=== PATIENT | male | born 1945 | race Caucasian/White ===

== ENCOUNTER 2019-06-23 10:24 | Emergency (ER) | payer MEDICARE, OTHER ==
--- NOTE | 2019-06-23 10:47 | ED Physician Documentation ---
History of Present Illness - Stated complaint Stated Complaint: ABD PX/CHEST DISCOMFORT - Chief complaint Chief Complaint: General - History obtained from History obtained from: Patient - History of Present Illness Timing: Today Pain level max: 3 Pain level now: 0 - Additonal information Additional information: states epigastric pain x 2 hours this am. Started at 7am. States feels similar to past pancreatitis. No nausea or vomiting. Now resolved. No fever or chills. No change in bowel movements. No etoh. Pain radiated to his chest in the bilateral upper extremities. He took Aleve without relief. No history of cardiac issues in the past. States he had a normal cardiac stress test in 2010. Review of Systems Ten Systems: 10 systems reviewed and negative Constitutional: denies: Fever, Chills Ears: denies: Ear pain Nose: denies: Rhinorrhea / runny nose, Congestion Respiratory: denies: Dyspnea, Cough GI: denies: Nausea, Vomiting, Diarrhea Skin: denies: Rash Musculoskeletal: denies: Neck pain, Back pain Neurologic: denies: Headache PD PAST MEDICAL HISTORY - Past Medical History Past Medical History: Yes GI: Pancreatitis, Cholelithiasis - Past Surgical History Past Surgical History: Yes General: Cholecystectomy - Present Medications Home Medications: Ambulatory Orders Medication Instructions Recorded Confirmed Tamsulosin [Flomax] 0.4 mg PO DAILY 06/23/19 06/23/19 - Allergies Allergies/Adverse Reactions: Allergies Allergy/AdvReac Type Severity Reaction Status Date / Time No Known Drug Allergies Allergy Verified 06/23/19 10:36 - Social History Does the pt smoke?: No Smoking Status: Never smoker PD ED PE NORMAL - Vitals Vital signs reviewed: Yes - General General: Alert and oriented X 3, No acute distress - HEENT HEENT: Moist mucous membranes - Neck Neck: Supple, no meningeal sign - Cardiac Cardiac: RRR, Strong equal pulses - Respiratory Respiratory: No respiratory distress, Clear bilaterally - Abdomen Abdomen: Soft, Non tender, Non distended - Derm Derm: Warm and dry - Neuro Neuro: Alert and oriented X 3 - Psych Psych: Normal mood, Normal affect Results - Vitals Vitals: Vital Signs - 24 hr 06/23/19 06/23/19 06/23/19 10:30 11:02 12:21 Temperature 36.4 C L Heart Rate 68 63 75 Respiratory 14 21 17 Rate Blood Pressure 178/84 H 164/80 H 167/82 H O2 Saturation 100 100 100 06/23/19 06/23/19 14:16 16:00 Temperature Heart Rate 57 L 62 Respiratory 18 12 Rate Blood Pressure 164/75 H 151/69 H O2 Saturation 98 99 Oxygen O2 Source Room air - EKG (time done) 1029 Rate: Rate (enter#) (63) Rhythm: NSR [place]: Normal Intervals: Normal LA QRS: Normal Ischemia: Normal ST segments - Labs Labs: Laboratory Tests 06/23/19 06/23/19 06/23/19 11:07 11:07 11:07 WBC 4.7 L RBC 4.76 Hgb 15.3 Hct 46.9 MCV 98.5 H MCH 32.1 H MCHC 32.6 RDW 13.0 Plt Count 199 MPV 10.8 Neut # (Auto) 3.6 Lymph # (Auto) 0.7 L [place] # (Auto) 0.3 Eos # (Auto) 0.1 Baso # (Auto) 0.0 Absolute Nucleated RBC 0.00 Nucleated RBC % 0.0 Sodium 143 Potassium 4.1 Chloride 103 Carbon Dioxide 28 Anion Gap 12.0 BUN 26 H Creatinine 0.9 Estimated GFR (MDRD) 83 L Glucose 153 H Calcium 9.2 Total Bilirubin 0.9 AST 30 ALT 30 Alkaline Phosphatase 85 Troponin I High Sens 583.0 H* Total Protein 6.5 L Albumin 4.1 Globulin 2.4 Albumin/Globulin Ratio 1.7 Lipase 22 06/23/19 12:56 WBC RBC Hgb Hct MCV MCH MCHC RDW Plt Count MPV Neut # (Auto) Lymph # (Auto) [place] # (Auto) Eos # (Auto) Baso # (Auto) Absolute Nucleated RBC Nucleated RBC % Sodium Potassium Chloride Carbon Dioxide Anion Gap BUN Creatinine Estimated GFR (MDRD) Glucose Calcium Total Bilirubin AST ALT Alkaline Phosphatase Troponin I High Sens 4401.8 H* Total Protein Albumin Globulin Albumin/Globulin Ratio Lipase - Rads (name of study) cxr Radiology: Prelim report reviewed, EMP read contemporaneously, See rad report (no acute disease) PD MEDICAL DECISION MAKING - ED course Complexity details: reviewed results, re-evaluated patient, considered differential, d/w patient, d/w family ED course: 73-year-old male with symptoms that are typical for acute coronary syndrome. Normal EKG. Initial high-sensitivity troponin is significantly elevated. Aspirin given and heparin drip started. States that his last care was at [facility] and that is where most of his medical contacted [facility], spoke with Dr. Swanson at 1300, cardiology who recommends admission of the hospitalist there. Discussed with Dr. Epstein, hospitalist at 1310 who graciously accepts in transfer. COBRA forms filled out. No recurrent chest pain here. This document was made in part using voice recognition software. While efforts are made to proofread this document, sound alike and grammatical errors may occur. High-sensitivity troponin was repeated with significant rise Departure - Departure Disposition: 02 Transfer Acute Care Hosp Clinical Impression: NSTEMI (non-ST elevated myocardial infarction) Condition: Stable
[2019-06-23 11:09] LABS: BASOPHILS % (AUTO) 0.9 %; WHITE BLOOD COUNT 4.7 x10^3/uL (4.8-10.8)
[2019-06-23 11:15] LABS: EOSINOPHILS # (AUTO) 0.1 10^3/uL (0.0-0.7); EOSINOPHILS % (AUTO) 1.3 %; HGB - HEMOGLOBIN 15.3 g/dL (14.0-18.0); LYMPHOCYTES # (AUTO) 0.7 10^3/uL (1.5-3.5); LYMPHOCYTES % (AUTO) 14.3 %; MEAN CORPUSCULAR HEMOGLOBIN 32.1 pg (27.0-31.0); MEAN CORPUSCULAR HGB CONC 32.6 g/dL (32.0-36.0); MEAN CORPUSCULAR VOLUME 98.5 fL (80.0-94.0); MEAN PLATELET VOLUME 10.8 fL (7.4-11.4); MONOCYTES # (AUTO) 0.3 10^3/uL (0.0-1.0); MONOCYTES % (AUTO) 7.2 %; NEUTROPHILS # (AUTO) 3.6 10^3/uL (1.5-6.6); NEUTROPHILS % (AUTO) 75.9 %; PLT - PLATELET COUNT 199 10^3/uL (130-450); RED BLOOD COUNT 4.76 10^6/uL (4.70-6.10)
[2019-06-23 11:26] LABS: ALBUMIN 4.1 g/dL (3.2-5.5); ALBUMIN/GLOBULIN RATIO 1.7 (1.0-2.2); BILIRUBIN,TOTAL 0.9 mg/dL (0.2-1.0); CALCIUM 9.2 mg/dL (8.5-10.3); CREATININE 0.9 mg/dL (0.6-1.2); TOTAL PROTEIN 6.5 g/dL (6.7-8.2)
--- NOTE | 2019-06-23 11:35 | XRAY Report ---
Reason: Chest Pain Procedure Date: 06/23/2019 Accession Number: [id number] / [id number] Procedure: XR - Chest 1 View X-Ray CPT Code: 04994 FULL RESULT: EXAM: CHEST RADIOGRAPHY EXAM DATE: 06/23/2019 11:11 AM. CLINICAL HISTORY: Chest Pain. COMPARISON: None. TECHNIQUE: 1 view. FINDINGS: Lungs/Pleura: No focal opacities evident. No pleural effusion. No pneumothorax. Mediastinum: Heart and mediastinal contours are notable for aortic calcification. Other: None. IMPRESSION: No acute cardiopulmonary abnormality demonstrated. RADIA
[2019-06-23] MEDS ORDERED: HEPARIN 5,000 UNIT/ML VIAL IVP STA (11:54)
[2019-06-23] MEDS ORDERED: HEPARIN 25000UNITS/500ML (D5W) 25,000 UNIT/500 ML BAG IV STA (11:54)
[2019-06-23] MEDS ORDERED: ASPIRIN CHEW 81 MG TABLET PO STA (11:55)
[2019-06-23 16:02] VITALS: BP 151/69
== END 2019-06-23 16:30 | disposition short-term general hospital (02) ==
LOC: ED 10:24
DX: I21.4 Non-ST elevation (NSTEMI) myocardial infarction (principal)
CPT/HCPCS: 36415; 71045; 80053; 83690; 85025; 93005; 96374; 99285; A9270

== ENCOUNTER 2019-07-02 | Outpatient (CLI) | payer MEDICARE, OTHER | END 2019-07-02 09:52 | disposition critical access hospital (66) | DX: K62.5 Hemorrhage of anus and rectum (principal); Z79.02 Long term (current) use of antithrombotics/antiplatelets | CPT/HCPCS: A0425; A0429 ==

== ENCOUNTER 2019-07-02 10:10 | Emergency (ER) | payer MEDICARE, OTHER ==
[2019-07-02 10:40] LABS: BASOPHILS # (AUTO) 0.1 10^3/uL (0.0-0.1); BASOPHILS % (AUTO) 0.8 %; EOSINOPHILS # (AUTO) 0.2 10^3/uL (0.0-0.7); EOSINOPHILS % (AUTO) 3.4 %; HGB - HEMOGLOBIN 14.4 g/dL (14.0-18.0); LYMPHOCYTES # (AUTO) 1.1 10^3/uL (1.5-3.5); MEAN CORPUSCULAR HEMOGLOBIN 31.6 pg (27.0-31.0); MEAN CORPUSCULAR HGB CONC 31.6 g/dL (32.0-36.0); MEAN CORPUSCULAR VOLUME 99.8 fL (80.0-94.0); MONOCYTES # (AUTO) 0.5 10^3/uL (0.0-1.0); MONOCYTES % (AUTO) 8.8 %; NEUTROPHILS # (AUTO) 4.2 10^3/uL (1.5-6.6); NEUTROPHILS % (AUTO) 68.5 %; PLT - PLATELET COUNT 197 10^3/uL (130-450); RED BLOOD COUNT 4.56 10^6/uL (4.70-6.10); RED CELL DISTRIBUTION WIDTH 13.4 % (12.0-15.0); WHITE BLOOD COUNT 6.1 x10^3/uL (4.8-10.8)
[2019-07-02 10:46] LABS: INR 1.2 (0.8-1.2); PT - PROTHROMBIN TIME 13.1 secs (9.9-12.6)
[2019-07-02 10:53] LABS: PARTIAL THROMBOPLASTIN TIME 30.3 secs (24.9-33.3)
[2019-07-02 11:01] LABS: ALBUMIN 3.8 g/dL (3.2-5.5); ALBUMIN/GLOBULIN RATIO 1.5 (1.0-2.2); CALCIUM 9.5 mg/dL (8.5-10.3); TOTAL PROTEIN 6.3 g/dL (6.7-8.2)
--- NOTE | 2019-07-02 11:19 | ED Physician Documentation ---
PD HPI GI BLEED - Stated complaint Stated Complaint: RECTAL BLEED - Chief complaint Chief Complaint: Abd Pain - History obtained from History obtained from: Patient, Family (spouse) - History of Present Illness Timing - onset: Today Associated symptoms: Maroon stool Similar symptoms before: Has not had sx before Recently seen: Admitted (Hospitalized 9 days ago for acute PA; underwent coronary stent; discharged on Plavix and baby ASA.) - Additional information Additional information: The patient is a 73-year-old male who presents via ambulance after an episode of dark red blood per rectum this morning. At the time he had mild dull lower abdominal discomfort, which has since resolved. He also reports slight nausea that has also resolved. He denies vomiting. He denies fever, lightheadedness, or dysuria. He denies history of similar symptoms in the past. His past medical history is significant for necrotizing pancreatitis. He underwent open cholecystectomy in 2011 after failed attempt at laparoscopic procedure. He is 9 days status post acute PA for which he was hospitalized at [facility], where he underwent coronary stent placement. Current medications include Plavix 75 mg daily, and baby aspirin 1 daily. Review of Systems Constitutional: denies: Fever, Fatigue Ears: denies: Tinnitus/ringing Nose: denies: Congestion Throat: denies: Sore throat Cardiac: denies: Chest pain / pressure, Palpitations Respiratory: denies: Dyspnea, Cough GI: reports: Bloody / black stool. denies: Abdominal Pain, Vomiting : denies: Dysuria Skin: denies: Rash Musculoskeletal: denies: Back pain Neurologic: denies: Focal weakness, Numbness, Syncope, Headache PD PAST MEDICAL HISTORY - Past Medical History Past Medical History: Yes Cardiovascular: [place] GI: Pancreatitis, Cholelithiasis - Past Surgical History Past Surgical History: Yes General: Cholecystectomy - Present Medications Home Medications: Ambulatory Orders Medication Instructions Recorded Confirmed Tamsulosin [Flomax] 0.4 mg PO DAILY 06/23/19 07/02/19 Aspirin 81 mg PO DAILY 07/02/19 07/02/19 Atorvastatin [Lipitor] 40 mg QPM 07/02/19 07/02/19 Clopidogrel [Plavix] 1 tab DAILY 07/02/19 07/02/19 Lisinopril 5 mg PO DAILY 07/02/19 07/02/19 Metoprolol Tartrate 25 mg PO BID 07/02/19 07/02/19 - Allergies Allergies/Adverse Reactions: Allergies Allergy/AdvReac Type Severity Reaction Status Date / Time No Known Drug Allergies Allergy Verified 07/02/19 10:15 - Social History Does the pt smoke?: No Smoking Status: Never smoker Does the pt have substance abuse?: No PD ED PE NORMAL - Vitals Vital signs reviewed: Yes (normal) - General General: Alert and oriented X 3, Well developed/nourished - HEENT HEENT: Atraumatic, Pharynx benign - Neck Neck: No adenopathy, No JVD - Cardiac Cardiac: RRR - Respiratory Respiratory: No respiratory distress, Clear bilaterally - Abdomen Abdomen: Normal bowel sounds, Soft, Non tender, No organomegaly - Rectal Rectal: Other (Dark blood in the rectal vault.) - Back Back: No CVA TTP - Derm Derm: No rash - Extremities Extremities: No edema, No calf tenderness / cord - Neuro Neuro: Alert and oriented X 3, No motor deficit, Normal speech Results - Vitals Vitals: Vital Signs - 24 hr 07/02/19 07/02/19 07/02/19 10:14 11:56 13:14 Temperature 36.4 C L Heart Rate 68 54 L Heart Rate [ 58 L Sitting] Heart Rate [ 59 L Standing] Heart Rate [ 55 L Supine] Respiratory 18 12 Rate Blood Pressure 139/80 H 121/74 Blood Pressure 132/84 H [Sitting] Blood Pressure 129/92 H [Standing] Blood Pressure 141/69 H [Supine] O2 Saturation 99 100 Oxygen O2 Source Room air - Labs Labs: Laboratory Tests 07/02/19 07/02/19 07/02/19 10:22 10:22 10:22 WBC 6.1 RBC 4.56 L Hgb 14.4 Hct 45.5 MCV 99.8 H MCH 31.6 H MCHC 31.6 L RDW 13.4 Plt Count 197 MPV 11.0 Neut # (Auto) 4.2 Lymph # (Auto) 1.1 L [place] # (Auto) 0.5 Eos # (Auto) 0.2 Baso # (Auto) 0.1 Absolute Nucleated RBC 0.00 Nucleated RBC % 0.0 PT 13.1 H INR 1.2 APTT 30.3 Sodium 142 Potassium 4.7 Chloride 104 Carbon Dioxide 27 Anion Gap 11.0 BUN 28 H Creatinine 1.0 Estimated GFR (MDRD) 74 L Glucose 139 H Calcium 9.5 Total Bilirubin 1.0 AST 28 ALT 36 Alkaline Phosphatase 77 Total Protein 6.3 L Albumin 3.8 Globulin 2.5 Albumin/Globulin Ratio 1.5 Lipase 28 PD MEDICAL DECISION MAKING - ED course Complexity details: reviewed old records, reviewed results, re-evaluated patient, considered differential, d/w patient, d/w family, d/w PMD ED course: The patient's presentation is significant for rectal bleeding, without any other symptoms. He is not orthostatic, and his hemoglobin and hematocrit are normal at 14.4 and 45.5. He is currently on Plavix at 75 mg daily, and one baby aspirin daily. He has no abdominal pain, and his abdominal exam is benign. I discussed his presentation with Dr. Giordano, his primary physician at [facility]. He confirms that the patient had a colonoscopy in 2013, revealing diverticulosis. He will schedule the patient for another colonoscopy, as he was due for one within the next few months. I discussed with the patient and his the results of his work-up, the importance of outpatient follow-up, as well as potentially worrisome signs or symptoms that should prompt reevaluation in the emergency department. Departure - Departure Disposition: 01 Home, Self Care Clinical Impression: Rectal bleeding, Recent myocardial infarction Condition: Stable Instructions: ED Hematochezia Stable Follow-Up: SHANTELLE GIORDANO [Physician No Access] - Comments: Continue taking Plavix as prescribed by her finished hardware erector. You can leave a message for Dr. Giordano daily to report symptoms. Dr. Giordano will be scheduling you for a repeat colonoscopy. Return to the emergency department if you develop increasing bleeding, lightheadedness, or otherwise worsening symptoms. Discharge Date/Time: 07/02/19 13:40
[2019-07-02 13:14] VITALS: BP 121/74
== END 2019-07-02 13:40 | disposition home or self-care (01) ==
LOC: ED 10:10
DX: K62.5 Hemorrhage of anus and rectum (principal); I21.9 Acute myocardial infarction, unspecified; Z95.5 Presence of coronary angioplasty implant and graft; Z79.02 Long term (current) use of antithrombotics/antiplatelets; Z79.82 Long term (current) use of aspirin; Z90.49 Acquired absence of other specified parts of digestive tract; Z87.19 Personal history of other diseases of the digestive system
CPT/HCPCS: 36415; 80053; 83690; 85025; 85610; 85730; 99283; 99284

== ENCOUNTER 2020-01-12 12:19 | Emergency (ER) | payer MEDICARE, OTHER ==
[2020-01-12 12:53] LABS: BASOPHILS # (AUTO) 0.1 10^3/uL (0.0-0.1); EOSINOPHILS # (AUTO) 0.1 10^3/uL (0.0-0.7); EOSINOPHILS % (AUTO) 2.5 %; HGB - HEMOGLOBIN 13.6 g/dL (14.0-18.0); LYMPHOCYTES % (AUTO) 20.1 %; MEAN CORPUSCULAR HEMOGLOBIN 31.1 pg (27.0-31.0); MEAN CORPUSCULAR HGB CONC 32.2 g/dL (32.0-36.0); MEAN CORPUSCULAR VOLUME 96.3 fL (80.0-94.0); MEAN PLATELET VOLUME 10.4 fL (7.4-11.4); MONOCYTES # (AUTO) 0.5 10^3/uL (0.0-1.0); MONOCYTES % (AUTO) 9.8 %; NEUTROPHILS # (AUTO) 3.4 10^3/uL (1.5-6.6); NEUTROPHILS % (AUTO) 66.2 %; PLT - PLATELET COUNT 211 10^3/uL (130-450); RED BLOOD COUNT 4.38 10^6/uL (4.70-6.10); RED CELL DISTRIBUTION WIDTH 14.6 % (12.0-15.0); WHITE BLOOD COUNT 5.1 x10^3/uL (4.8-10.8)
[2020-01-12 12:59] LABS: INR 1.2 (0.8-1.2); PT - PROTHROMBIN TIME 13.2 secs (9.9-12.6)
[2020-01-12 13:06] LABS: PARTIAL THROMBOPLASTIN TIME 34.2 secs (24.9-33.3)
[2020-01-12 13:09] LABS: ALBUMIN 4.2 g/dL (3.2-5.5); ALBUMIN/GLOBULIN RATIO 1.6 (1.0-2.2); BILIRUBIN,TOTAL 1.3 mg/dL (0.2-1.0); CALCIUM 9.4 mg/dL (8.5-10.3); CREATININE 1.2 mg/dL (0.6-1.2); TOTAL PROTEIN 6.9 g/dL (6.7-8.2)
--- NOTE | 2020-01-12 13:42 | ED Physician Documentation ---
History of Present Illness - Stated complaint Stated Complaint: BLOODY STOOL - Chief complaint Chief Complaint: General - History obtained from History obtained from: Patient - History of Present Illness Timing: How many days ago (3) Pain level max: 0 Pain level now: 0 - Additonal information Additional information: 74-year-old male with bright red blood in his stool 2-3 times over the last 3 days. He did have a small amount of diarrhea that is now resolved. No fevers. No recent travel. No recent antibiotics. He did have a GI bleed in July 2019. He was hospitalized at that time, given 2 units of packed red blood cells. He also had a sigmoidoscopy at that time that did not reveal any significant abnormalities other than [place] diverticula. He is on Plavix and aspirin for cardiac stent. He currently feels well and states that he is not having bleeding currently. He is not having bleeding without bowel movements. Nothing makes it better or worse Review of Systems Ten Systems: 10 systems reviewed and negative Constitutional: denies: Fever, Chills Ears: denies: Ear pain Nose: denies: Rhinorrhea / runny nose, Congestion Cardiac: denies: Chest pain / pressure Respiratory: denies: Cough GI: denies: Vomiting, Diarrhea Skin: denies: Rash Musculoskeletal: denies: Neck pain, Back pain PD PAST MEDICAL HISTORY - Past Medical History Cardiovascular: [place] GI: Pancreatitis, Cholelithiasis - Past Surgical History Past Surgical History: Yes General: Cholecystectomy - Present Medications Home Medications: Ambulatory Orders Medication Instructions Recorded Confirmed Tamsulosin [Flomax] 0.4 mg PO DAILY 06/23/19 07/02/19 Aspirin 81 mg PO DAILY 07/02/19 07/02/19 Atorvastatin [Lipitor] 40 mg QPM 07/02/19 07/02/19 Clopidogrel [Plavix] 1 tab DAILY 07/02/19 07/02/19 Metoprolol Tartrate 25 mg PO BID 07/02/19 07/02/19 lisinopriL [Lisinopril] 5 mg PO DAILY 07/02/19 07/02/19 - Allergies Allergies/Adverse Reactions: Allergies Allergy/AdvReac Type Severity Reaction Status Date / Time No Known Drug Allergies Allergy Verified 01/12/20 12:22 - Social History Does the pt smoke?: No Smoking Status: Never smoker Does the pt have substance abuse?: No PD ED PE NORMAL - Vitals Vital signs reviewed: Yes - General General: Alert and oriented X 3, No acute distress, Well developed/nourished - HEENT HEENT: Moist mucous membranes - Neck Neck: Supple, no meningeal sign - Cardiac Cardiac: RRR - Respiratory Respiratory: No respiratory distress, Clear bilaterally - Abdomen Abdomen: Soft, Non tender, Non distended - Rectal Rectal: Other (Normal rectal exam. Hemoccult negative.) - Derm Derm: Warm and dry - Neuro Neuro: Alert and oriented X 3 - Psych Psych: Normal mood, Normal affect Results - Vitals Vitals: Vital Signs - 24 hr 01/12/20 01/12/20 12:22 13:32 Temperature 36.6 C 36.4 C L Heart Rate 60 60 Respiratory 14 16 Rate Blood Pressure 133/66 H 156/80 H O2 Saturation 100 98 Oxygen O2 Source Room air - Labs Labs: Laboratory Tests 01/12/20 01/12/20 01/12/20 12:43 12:43 12:43 WBC 5.1 RBC 4.38 L Hgb 13.6 L Hct 42.2 MCV 96.3 H MCH 31.1 H MCHC 32.2 RDW 14.6 Plt Count 211 MPV 10.4 Neut # (Auto) 3.4 Lymph # (Auto) 1.0 L [place] # (Auto) 0.5 Eos # (Auto) 0.1 Baso # (Auto) 0.1 Absolute Nucleated RBC 0.00 Nucleated RBC % 0.0 PT 13.2 H INR 1.2 APTT 34.2 H Sodium 137 Potassium 4.7 Chloride 101 Carbon Dioxide 26 Anion Gap 10.0 BUN 30 H Creatinine 1.2 Estimated GFR (MDRD) 60 L Glucose 125 H Calcium 9.4 Total Bilirubin 1.3 H AST 35 ALT 39 Alkaline Phosphatase 65 Total Protein 6.9 Albumin 4.2 Globulin 2.7 Albumin/Globulin Ratio 1.6 Lipase 26 Blood Type Antibody Screen 01/12/20 12:43 WBC RBC Hgb Hct MCV MCH MCHC RDW Plt Count MPV Neut # (Auto) Lymph # (Auto) [place] # (Auto) Eos # (Auto) Baso # (Auto) Absolute Nucleated RBC Nucleated RBC % PT INR APTT Sodium Potassium Chloride Carbon Dioxide Anion Gap BUN Creatinine Estimated GFR (MDRD) Glucose Calcium Total Bilirubin AST ALT Alkaline Phosphatase Total Protein Albumin Globulin Albumin/Globulin Ratio Lipase Blood Type O POSITIVE Antibody Screen NEGATIVE PD MEDICAL DECISION MAKING - ED course Complexity details: reviewed old records, reviewed results, considered differential, d/w patient ED course: Patient with a negative Hemoccult rectal exam. No active bleeding in the emergency department. Normal hemoglobin. Soft abdomen. We will have him follow-up with his doctor for further care. Patient counseled regarding signs and symptoms for which I believe and urgent re-evaluation would be necessary. Patient with good understanding of and agreement to plan and is comfortable going home at this time This document was made in part using voice recognition software. While efforts are made to proofread this document, sound alike and grammatical errors may occur. Departure - Departure Disposition: 01 Home, Self Care Clinical Impression: Hematochezia Condition: Good Instructions: ED Hematochezia Stable Follow-Up: SHANTELLE GIORDANO [Primary Care Provider] - Within 1 week Comments: Return if you worsen. Return if you feel lightheaded, dizzy, short of breath or have chest pain. Your blood counts are normal today. Your hemoglobin is 13.6. You should have this rechecked with your doctor in 1 week
[2020-01-12 14:01] VITALS: BP 144/75
== END 2020-01-12 14:04 | disposition home or self-care (01) ==
LOC: ED 12:19
DX: K92.1 Melena (principal)
CPT/HCPCS: 36415; 80053; 83690; 85025; 85610; 85730; 86850; 86900; 86901; 99283; 99284

== ENCOUNTER 2021-09-14 12:46 | Outpatient (CLI) | payer MEDICARE, OTHER | END 2021-09-14 12:47 | disposition critical access hospital (66) | LOC: EMS 12:46 | DX: M54.6 Pain in thoracic spine (principal); R42 Dizziness and giddiness | CPT/HCPCS: A0425; A0429 ==

== ENCOUNTER 2021-09-14 12:59 | Emergency (ER) | payer MEDICARE, OTHER ==
[2021-09-14 13:43] LABS: BASOPHILS % (AUTO) 0.6 %; EOSINOPHILS # (AUTO) 0.1 10^3/uL (0.0-0.7); EOSINOPHILS % (AUTO) 1.9 %; HCT - HEMATOCRIT 45.4 % (42.0-52.0); HGB - HEMOGLOBIN 14.8 g/dL (14.0-18.0); LYMPHOCYTES # (AUTO) 0.8 10^3/uL (1.5-3.5); LYMPHOCYTES % (AUTO) 14.8 %; MEAN CORPUSCULAR HGB CONC 32.6 g/dL (32.0-36.0); MEAN CORPUSCULAR VOLUME 98.1 fL (80.0-94.0); MEAN PLATELET VOLUME 10.5 fL (7.4-11.4); MONOCYTES # (AUTO) 0.4 10^3/uL (0.0-1.0); MONOCYTES % (AUTO) 8.4 %; NEUTROPHILS # (AUTO) 3.9 10^3/uL (1.5-6.6); NEUTROPHILS % (AUTO) 74.1 %; PLT - PLATELET COUNT 152 10^3/uL (130-450); RED BLOOD COUNT 4.63 10^6/uL (4.70-6.10); RED CELL DISTRIBUTION WIDTH 12.8 % (12.0-15.0); WHITE BLOOD COUNT 5.3 x10^3/uL (4.8-10.8)
--- NOTE | 2021-09-14 13:49 | XRAY Report ---
PROCEDURE: Chest 1 View X-Ray INDICATIONS: Chest Pain TECHNIQUE: One view of the chest was acquired. COMPARISON: Chest x-ray 06/23/2019 FINDINGS: Surgical changes and devices: Cholecystectomy clips. Lungs and pleura: No pleural effusions or pneumothorax. Lungs are clear. Mediastinum: Mediastinal contours appear normal. Heart size is enlarged. Bones and chest wall: No suspicious bony lesions. Overlying soft tissues appear unremarkable. IMPRESSION: No acute pulmonary process. Reviewed by: Nataly Tyson MD on 09/14/2021 1:48 PM PDT Approved by: Nataly Tyson MD on 09/14/2021 1:48 PM PDT Station ID: [id number]
[2021-09-14 14:00] LABS: ALBUMIN 3.9 g/dL (3.2-5.5); ALBUMIN/GLOBULIN RATIO 1.5 (1.0-2.2); BILIRUBIN,TOTAL 1.1 mg/dL (0.2-1.0); CALCIUM 9.3 mg/dL (8.5-10.3); POTASSIUM 4.2 mmol/L (3.5-5.0); TOTAL PROTEIN 6.5 g/dL (6.7-8.2)
--- NOTE | 2021-09-14 14:54 | ED Physician Documentation ---
History of Present Illness - Stated complaint Stated Complaint: BACK PX - Chief complaint Chief Complaint: General - History obtained from History obtained from: Patient - History of Present Illness Timing: Last night Pain level max: 5 Pain level now: 2 - Additonal information Additional information: Patient is a 76-year-old male who presents to the emergency department stating that his left shoulder has been hurting since last night. He states he recently changed his workout routine and increased the amount of weight he was lifting. The pain is worse with movement and better with rest. Worse with palpation. He states he also felt lightheaded for a few minutes earlier today. No chest pain. No shortness of breath. It occurred when he stood up after sitting for a while. He also had some left arm tingling earlier this morning. Currently is asymptomatic. Review of Systems Ten Systems: 10 systems reviewed and negative Constitutional: denies: Fever, Chills Throat: denies: Sore throat Cardiac: denies: Palpitations Respiratory: denies: Cough GI: denies: Abdominal Pain, Nausea, Vomiting, Diarrhea Skin: denies: Rash Musculoskeletal: denies: Neck pain, Back pain Neurologic: denies: Focal weakness, Numbness, Headache PD PAST MEDICAL HISTORY - Past Medical History Cardiovascular: [place] GI: Pancreatitis, Cholelithiasis - Past Surgical History Past Surgical History: Yes General: Cholecystectomy Cardiovascular: Coronary stent, Cardiac catheterization HEENT: Cataracts, Detached retina repair - Present Medications Home Medications: Ambulatory Orders Medication Instructions Recorded Confirmed Tamsulosin [Flomax] 0.4 mg PO DAILY 06/23/19 09/14/21 Aspirin 81 mg PO DAILY 07/02/19 09/14/21 Atorvastatin [Lipitor] 40 mg ORAL QPM 07/02/19 09/14/21 Metoprolol Tartrate 25 mg PO BID 07/02/19 09/14/21 lisinopriL [Lisinopril] 5 mg PO DAILY 07/02/19 09/14/21 Nitroglycerin [Nitrostat] 1 tab SL Q5MIN PRN 09/14/21 09/14/21 - Allergies Allergies/Adverse Reactions: Allergies Allergy/AdvReac Type Severity Reaction Status Date / Time No Known Drug Allergies Allergy Verified 09/14/21 13:08 - Social History Does the pt smoke?: No Smoking Status: Former smoker Does the pt drink ETOH?: No Does the pt have substance abuse?: No - Immunizations Immunizations are current?: Yes - POLST Patient has POLST: No PD ED PE NORMAL - Vitals Vital signs reviewed: Yes - General General: Alert and oriented X 3, No acute distress, Well developed/nourished - HEENT HEENT: Atraumatic, PERRL, Moist mucous membranes - Neck Neck: Supple, no meningeal sign, No bony TTP - Cardiac Cardiac: RRR, Strong equal pulses - Respiratory Respiratory: No respiratory distress, Clear bilaterally - Abdomen Abdomen: Soft, Non tender, Non distended - Back Back: No spinal TTP - Derm Derm: Warm and dry - Extremities Extremities: No edema, No calf tenderness / cord, Other (Tender to palpation along the left rhomboid muscle. Reproduces his pain. Pain with movement of the left shoulder as well. 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, No motor deficit, No sensory deficit, Normal speech - Psych Psych: Normal mood, Normal affect Results - Vitals Vitals: Vital Signs - 24 hr 09/14/21 09/14/21 13:03 15:03 Temperature 36.6 C Heart Rate 56 L 56 L Respiratory 16 16 Rate Blood Pressure 154/78 H 134/72 H O2 Saturation 100 98 Oxygen O2 Source Room air - EKG (time done) 1301 Rate: Rate (enter#) (53) Rhythm: NSR [place]: Normal Intervals: Normal SD, RBBB QRS: Normal - Labs Labs: Laboratory Tests 09/14/21 09/14/21 09/14/21 13:39 13:39 13:39 WBC 5.3 RBC 4.63 L Hgb 14.8 Hct 45.4 MCV 98.1 H MCH 32.0 H MCHC 32.6 RDW 12.8 Plt Count 152 MPV 10.5 Neut # (Auto) 3.9 Lymph # (Auto) 0.8 L [place] # (Auto) 0.4 Eos # (Auto) 0.1 Baso # (Auto) 0.0 Absolute Nucleated RBC 0.00 Nucleated RBC % 0.0 Sodium 137 Potassium 4.2 Chloride 102 Carbon Dioxide 26 Anion Gap 9.0 BUN 28 H Creatinine 1.0 Estimated GFR (MDRD) 73 L Glucose 145 H Calcium 9.3 Total Bilirubin 1.1 H AST 29 ALT 28 Alkaline Phosphatase 64 Troponin I High Sens 5.2 Total Protein 6.5 L Albumin 3.9 Globulin 2.6 Albumin/Globulin Ratio 1.5 Lipase 35 - Rads (name of study) cxr Radiology: Final report received, EMP read contemporaneously, See rad report (No acute pulmonary process. ) PD MEDICAL DECISION MAKING - ED course Complexity details: reviewed results, re-evaluated patient, considered differential (No ST elevation [place], no aortic dissection, no PE, no tension pneumothorax, no aortic aneurysm), d/w patient ED course: Patient is a 76-year-old male who presents to the emergency department left shoulder pain, appears to be musculoskeletal after increasing the weights he was using to work out his shoulders and increasing the frequency of his workouts. Does not appear to be cardiac related at this time. No evidence of aortic dissection or PE. Negative troponin after greater than 12 hours of symptoms. Patient is feeling better in the emergency department. We will have him utilize Motrin and Tylenol as needed for pain and have her follow-up with his doctor. Abdomen remained soft, nontender nondistended. No numbness or tingling in the arm currently. Normal neurological exam. Normal pulses in all 4 extremities. Patient counseled regarding signs and symptoms for which I believe and urgent re-evaluation would be necessary. Patient with good understanding of and agreement to plan and is comfortable going home at this time This document was made in part using voice recognition software. While efforts are made to proofread this document, sound alike and grammatical errors may occur. Departure - Departure Disposition: 01 Home, Self Care Clinical Impression: Shoulder pain, left Qualifiers: Chronicity: acute Qualified Code(s): M25.512 - Pain in left shoulder Condition: Good Instructions: ED Shoulder Pain [facility] Follow-Up: SHANTELLE GIORDANO [Primary Care Provider] - Within 1 week Comments: Follow up with your doctor for further care. Your testing does not show any acute abnormalities. Discharge Date/Time: 09/14/21 15:04
[2021-09-14 15:04] VITALS: BP 134/72
== END 2021-09-14 15:04 | disposition home or self-care (01) ==
LOC: EDUNIT# → ED 12:59
DX: M25.512 Pain in left shoulder (principal); I45.10 Unspecified right bundle-branch block; Z79.82 Long term (current) use of aspirin; Z87.891 Personal history of nicotine dependence
CPT/HCPCS: 36415; 80053; 83690; 84484; 85025; 93005; 99284